=== PATIENT | female | born 1945 | race Caucasian/White ===

== ENCOUNTER → 2017-01-17 | Outpatient (CLI) | payer BC ==
[~2017-01-17] MED LIST: CYMBALTA60 M1 PO; HYDR25T PO; NORVASC10 MG PO; PRILOSEC40 MG PO; ULTRAM100 MG PO
== END | disposition home or self-care (01) ==
LOC: MRI 02:03
DX: Z12.31 Encounter for screening mammogram for malignant neoplasm of breast (principal); M43.17 Spondylolisthesis, lumbosacral region; M47.897 Other spondylosis, lumbosacral region; M48.06 Spinal stenosis, lumbar region

== ENCOUNTER → 2017-04-02 | Outpatient (CLI) | payer OTHER ==
[2017-04-02 07:33] LABS: BASO # 0.1 10*3/uL (0.0-0.1); BASO % 0.8 % (0.0-1.0); EOS # 0.3 10*3/uL (0.0-0.4); EOS % 2.3 % (1.0-4.0); HEMATOCRIT 36.3 % (37.0-47.0); IG # 0.1 10*3/uL (0.0-0.1); LYMPH # 3.5 10*3/uL (1.3-4.4); LYMPH % 31.4 % (27.0-41.0); MEAN CELL VOLUME 77.9 fl (81.0-99.0); MEAN CORPUSCULAR HGB 23.6 pg (27.0-31.0); MEAN CORPUSCULAR HGB CONC 30.3 g/dl (33.0-37.0); MEAN PLATELET VOLUME 8.2 fl (9.6-12.3); MONO # 1.1 10*3/uL (0.1-1.0); MONO % 9.6 % (3.0-9.0); NEUT # 6.2 10*3/uL (2.3-7.9); NEUT % 55.5 % (47.0-73.0); PLATELET COUNT AUTOMATED 577 10*3/uL (130-400); RED BLOOD COUNT 4.66 10*6/uL (4.10-5.10); RED CELL DISTRI WIDTH 17.5 % (0-14.5); WHITE BLOOD COUNT 11.2 10*3/uL (4.8-10.8)
[2017-04-02 08:02] LABS: ALBUMIN 3.2 gm/dl (3.1-4.5); ALKALINE PHOSPHATASE 112 U/L (45-117); BILIRUBIN, TOTAL 0.2 mg/dl (0.2-1.0); BUN 19 mg/dl (7-24); CARBON DIOXIDE 29 mmol/L (21-32); CHLORIDE 103 mmol/L (98-107); CHOLESTEROL 259 mg/dL (<200); EST GLOM FILT AFRICAN AMERICAN > 60 ml/min; GLUCOSE 81 mg/dL (65-99); HDL CHOLESTEROL 71 mg/dl (40-60); LDL CHOLESTEROL 148 mg/dL (9-159); POTASSIUM 2.9 mmol/L (3.5-5.1); SGOT/AST 15 IU/L (3-35); SGPT/ALT 22 U/L (12-78); SODIUM 140 mmol/L (136-145); TOTAL PROTEIN 7.4 gm/dL (6.4-8.2); TRIGLYCERIDES 198 mg/dl (<150); VLDL CHOLESTEROL 40 mg/dL (6-40)
[2017-04-02 08:55] LABS: VITAMIN D, 25-HYDROXY 11.7 ng/mL (30-100)
[2017-04-02 08:56] LABS: FOLIC ACID 9.87 ng/mL (>5.38)
== END | disposition home or self-care (01) ==
LOC: LAB 07:04
PROVIDERS: Internal Medicine
DX: Z13.220 Encounter for screening for lipoid disorders (principal); Z13.1 Encounter for screening for diabetes mellitus; Z13.21 Encounter for screening for nutritional disorder; E78.2 Mixed hyperlipidemia; M54.5 Low back pain; F33.0 Major depressive disorder, recurrent, mild; E55.9 Vitamin D deficiency, unspecified; I10 Essential (primary) hypertension; M17.9 Osteoarthritis of knee, unspecified; R51 Headache

== ENCOUNTER → 2017-04-04 | Outpatient (CLI) | payer OTHER, MEDICARE | END | disposition home or self-care (01) | LOC: LAB 07:00 | DX: E87.6 Hypokalemia (principal) ==

== ENCOUNTER → 2018-02-02 | Day surgery (SDC) | payer OTHER ==
[~2018-02-02] VITALS: Ht 165.1 cm; Wt 78.9 kg
[~2018-02-02] MED LIST changes: +MELOXICAM7.5 MG PO; +REMERON15 M2 PO; +VITAMIN D50000 UNIT PO
--- NOTE | ~2018-02-02 | O ---
[place], [place] OPERATIVE NOTE NAME: DINAH FERGUSON UNIT #: [id number] ROOM: DOCTOR: JYOTHI FITZPATRICK MD BIRTHDATE: [birth year] DOS: 02/02/2018 GASTROENDOSCOPIC REPORT INDICATIONS: This is a 72-year-old patient, who has presented with chief complaint of anemia with H and H of 10 and 33. No evidence of active gastrointestinal bleed. ALLERGIES: CELEXA. FAMILY HISTORY: Father with throat and stomach carcinoma. PAST SURGICAL HISTORY: Left knee. PAST MEDICAL HISTORY: Hypertension, depression, and arthritis. PROCEDURE: Today's procedure part of investigation is panendoscopy and colonoscopy. PREMEDICATION: Versed and propofol. SCOPE: Olympus folding gastroscope Q10 video. REPORT: After putting the patient in left lateral position, application of lubricant to the scope, the scope was introduced. Thereafter, under direct visualization, advanced through the length of esophagus without difficulty, hiatal hernia, which is moderate in size was identified. Gastric pouch was entered. Gastritis seen. Antral biopsy obtained. Duodenal bulb, second and third part within normal limits along the lesser curvature. Air was suctioned out. The patient tolerated the procedure well. IMPRESSION: Gastritis, moderate sized hiatal hernia. PLAN AND DISCUSSION: 1. Continuation with omeprazole therapy. 2. I am going to proceed with colonoscopy today. COLONOSCOPY INDICATIONS: The patient has presented with chief complaint of anemia, undergoing investigation. PROCEDURE: Today's procedure part of investigation is colonoscopy. Premedications were Versed and propofol. SCOPE: Olympus folding colonoscope 10L video. REPORT: After putting the patient in left lateral position and application of lubricant to the scope, the scope was introduced. Thereafter, under direct visualization, advanced through the length of colon with some difficulty. [place], [place] OPERATIVE NOTE NAME: DINAH FERGUSON UNIT #: [id number] ROOM: DOCTOR: JYOTHI FITZPATRICK MD BIRTHDATE: [birth year] Severe sigmoid diverticulosis was noticed. Diverticulosis of severe degree as well as some benign strictures in the sigmoid colon was noticed. Scope, however, after appropriate maneuvers negotiated to cecum. Ileocecal valve, photographed. Scope was gradually withdrawn from ascending, transverse, descending colon, severe diverticulosis, again in sigmoid colon confirmed. Air was suctioned out. The patient was extubated, tolerated the procedure well. IMPRESSION: Diverticulosis, severe degree. PLAN AND DISCUSSION: Further workup of anemia is deferred to you as far as B12, folate, iron levels, and workup as outpatient. As far as the diet, regular to high fiber diet would be beneficial for her. ACTIVITY: Ad arleen. FOLLOWUP: Routinely with you in office, p.r.n. visit with us in GI Clinic. Follow-up colonoscopy in 10 years unless patient has symptoms for which follow-up should be sooner. Thank you very much indeed. Furthermore noticed that the patient is on meloxicam and needs to remain on PPI and contribution from Meloxicam to her anemia also has to be considered. JYOTHI FITZPATRICK MD CM:OPRECORD:OPERATIVE NOTE [id number] JYOTHI FITZPATRICK MD 02/26/18 1734 interface
[2018-02-02 15:00] VITALS: BP 155/87
[2018-02-02 16:26] VITALS: BP 173/88
[2018-02-02 16:41] VITALS: BP 177/86
[2018-02-02 16:57] VITALS: BP 166/78
== END | disposition home or self-care (01) ==
LOC: SDC 01-29 10:15
DX: K29.50 Unspecified chronic gastritis without bleeding (principal); K57.30 Diverticulosis of large intestine without perforation or abscess without bleeding; K44.9 Diaphragmatic hernia without obstruction or gangrene; I10 Essential (primary) hypertension; E78.00 Pure hypercholesterolemia, unspecified; M19.90 Unspecified osteoarthritis, unspecified site; M81.0 Age-related osteoporosis without current pathological fracture; K21.9 Gastro-esophageal reflux disease without esophagitis; F32.9 Major depressive disorder, single episode, unspecified; F41.9 Anxiety disorder, unspecified; Z88.8 Allergy status to other drugs, medicaments and biological substances; Z80.0 Family history of malignant neoplasm of digestive organs; Z98.890 Other specified postprocedural states; Z87.19 Personal history of other diseases of the digestive system; Z79.899 Other long term (current) drug therapy; Z90.49 Acquired absence of other specified parts of digestive tract; Z82.49 Family history of ischemic heart disease and other diseases of the circulatory system

== ENCOUNTER → 2018-03-09 | Outpatient (CLI) | payer OTHER ==
[~2018-03-09] MED LIST changes: +SYMB80 INH
[2018-03-09 12:24] LABS: CREATININE 0.97 mg/dL (0.55-1.02)
== END | disposition home or self-care (01) ==
LOC: LAB 11:02
PROVIDERS: Internal Medicine
DX: R06.02 Shortness of breath (principal)

== ENCOUNTER → 2018-03-12 | Outpatient (CLI) | payer OTHER | END | disposition home or self-care (01) | LOC: CT 03:27 | DX: R91.1 Solitary pulmonary nodule (principal); R06.02 Shortness of breath; R05 Cough; R10.13 Epigastric pain ==

== ENCOUNTER 2018-03-14 12:17 | Inpatient (IN) | payer OTHER ==
[~2018-03-14] VITALS: Ht 165.1 cm; Wt 75.7 kg
--- NOTE | ~2018-03-14 | EKG ---
[place], [place] ELECTROCARDIOGRAM REPORT NAME: DINAH FERGUSON UNIT #: [id number] ROOM: 520 DOCTOR: JING DRAFT REPORT BIRTHDATE: [birth year] [facility] Test Date: 2018-03-14 Test Time: 12:25:06 Pat Name: DINAH FERGUSON Department: Room: Gender: F Customer Service Correspondence Clerk: 10 : 1945 Requested By: SANDRA RAINES Order Number: [id number] Reading MD: Slick Vila MD Measurements Intervals [place] Rate: 108 P: 61 MI: 140 QRS: -17 QRSD: 89 T: 49 QT: 294 QTc: 394 Interpretive Statements Sinus tachycardia Consider left ventricular hypertrophy Electronically Signed On 03-17-2018 9:47:24 PDT by Slick Vila MD CM:EKGRPT:ELECTROCARDIOGRAM REPORT [id number] SANDRA BENJAMIN DRAFT REPORT SANDRA RAINES DO
--- NOTE | ~2018-03-14 | ST ---
[place], [place] EXERCISE STRESS TEST REPORT [id number] UNIT #: [id number] ROOM: 520 DOCTOR: LEENA DILL MD BIRTHDATE: [birth year] DOS: 03/15/2018 TREADMILL TEST WITH NUCLEAR SCAN HISTORY: The patient is a 73-year-old female admitted to [facility] with complaints of chest pains. The patient's cardiac enzymes were negative and she was tested on a Dwain protocol. FINDINGS: The patient exercised for a total of 4 minutes, maximum MET level was 7. Peak blood pressure 178 systolic over 40 diastolic, with a maximum heart rate of 141 beats per minute, which was 95% of the PMHR. The patient complained of some chest pains during the peak phase of exercise, which resolved during the recovery phase. The patient's baseline EKG showed normal sinus rhythm at the heart rate of 105 beats per minute, normal cardiac axis, no significant ST-T abnormality. During the exercise and recovery phase, the patient did not develop any significant EKG abnormality compatible with myocardial ischemia. No significant cardiac dysrhythmias were observed. The patient was injected with Cardiolite during the peak phase of exercise. IMPRESSION: 1. Normal EKG part of the treadmill test at 95% PMHR. 2. Cardiolite results to be reported by Dr. Youngblood, the emc storage architect later today. LEENA DILL MD CM:STRESS:EXERCISE STRESS TEST REPORT [id number] LEENA DILL MD
--- NOTE | ~2018-03-14 | WRIGHTHP ---
[place], [place] PATIENT HISTORY AND PHYSICAL EXAM NAME: DINAH FERGUSON [facility] #: [id number] UNIT #: [id number] ROOM: 520 DOCTOR: LEENA DILL MD BIRTHDATE: [birth year] DOS: 03/14/2018 HISTORY OF PRESENT ILLNESS: The patient is a 73-year-old female with a past medical history of: 1. Iron deficiency anemia. 2. History of postmenopausal osteoporosis. 3. Hiatal hernia. 4. Gastroesophageal reflux disease and esophagitis. 5. Depression. 6. Generalized anxiety disorder. 7. Benign essential hypertension. The patient presented to the Emergency Department with 2 months complaints of off and on retrosternal chest pains going into the jaw and the left arm happening off and on and progressive shortness of breath, fatigue and tiredness. The patient also had some cough and shortness of breath, especially dyspnea on exertion. No dizziness or fainting episode. No other GI or urinary symptoms. REVIEW OF SYSTEMS: RESPIRATORY: Increased shortness of breath and cough. GASTROINTESTINAL: No nausea, vomiting, diarrhea or constipation. CARDIOVASCULAR SYSTEM: Complains of chest pains radiating into the left arm and jaw. FAMILY HISTORY: Noncontributory. SOCIAL HISTORY: . Denies smoking cigarettes, alcohol and drug abuse. ALLERGIES: No known drug allergies. LABORATORY DATA: BUN and creatinine 15 and 1.3, hemoglobin has dropped to 10.1 as compared to 13.5 from 2 years ago. Lactic acid level 3.1, dropped to normal. Recent CT of the chest did not show any acute abnormality, just small pulmonary nodules. IMPRESSION: 1. Chest pains, increased shortness of breath and dyspnea on exertion from uncertain etiology. The patient has been started on bronchodilators, corticosteroids, antibiotic and scheduled for a cardiac stress test in the morning, 2 sets of cardiac enzymes are already negative. 2. Progressive anemia and history of iron deficiency anemia. I have ordered fecal occult blood. 3. Fatigue, probably related to anemia. 4. Gastroesophageal reflux disease and esophagitis with hiatal hernia, treated and asymptomatic with omeprazole. 5. Benign essential hypertension, treated and controlled. The patient on amlodipine and hydrochlorothiazide. 6. Urinary tract infection with 11-15 wbc's per high powered field. I will check urine cultures and also treat with antibiotics. [place], [place] PATIENT HISTORY AND PHYSICAL EXAM NAME: DINAH FERGUSON UNIT #: [id number] ROOM: [facility] DOCTOR: FUENTES MORRIS,LEENA Carrasco BIRTHDATE: [birth year] LEENA DILL MD CM:HISPHYS:PATIENT HISTORY AND PHYSICAL EXAMINATION 12 34 LEENA DILL MD 03/14/182033 interface
--- NOTE | ~2018-03-14 | DS ---
[place], [place] DISCHARGE SUMMARY NAME: DINAH FERGUSON UNIT #: [id number] ROOM: 520 DOCTOR: LEENA DILL MD BIRTHDATE: [birth year] DOS: 03/15/2018 DISCHARGE DIAGNOSES: 1. Chest pains from uncertain etiology with normal cardiac stress test. 2. Progressive anemia, iron deficiency anemia. Fecal occult blood was ordered, but not performed. 3. Postmenopausal osteoporosis. 4. Hiatal hernia, gastroesophageal reflux disease and esophagitis. 5. Chronic depression, recurrent. 6. Generalized anxiety disorder. 7. Benign essential hypertension. 8. Urinary tract infection, treated with antibiotics. HOSPITAL COURSE: The patient presented with recurrent chest pains as mentioned in my H and P. The patient is at high risk for coronary artery disease. She was admitted and cardiac enzymes were performed, which were negative. The patient was finally taken for a cardiac stress test, which was normal and she was discharged to home asymptomatic. 1. Iron deficiency anemia. Hemoccult stools were ordered. Hemoglobin was followed. The patient's hemoglobin has gradually dropped to 8.5 from a level of 13.5 in 2016. This needs to be evaluated as an outpatient. This can also result in some tiredness and fatigue that the patient had been complaining of. The patient was asked to follow up with her PCP, Dr. María Banuelos next week when her blood counts should be repeated. 2. Urinary tract infection, treated with IV Rocephin in the hospital and Bactrim-DS as an outpatient. 3. Benign essential hypertension, treated and controlled. 4. Major depression, recurrent, moderate, treated with mirtazapine. DISCHARGE MEDICATION MANAGEMENT: Hydrochlorothiazide 12.5 mg daily, omeprazole 40 mg a day, amlodipine 10 mg a day, mirtazapine 7.5 mg at bedtime, Meloxicam 7.5 mg b.i.d., and Bactrim DS b.i.d. for 1 week. [place], [place] DISCHARGE SUMMARY NAME: DINAH FERGUSON UNIT #: [id number] ROOM: 520 DOCTOR: LEENA DILL MD BIRTHDATE: [birth year] LEENA DILL MD CM:CRISTOBAL 19 22 LEENA DILL MD 03/15/182020 interface
[~2018-03-14 12:17] MED LIST changes: -SYMB80 INH
[2018-03-14 12:24] VITALS: BP 149/83
[2018-03-14 12:36] LABS: BASO # 0.1 10*3/uL (0.0-0.1); BASO % 1.1 % (0.0-1.0); EOS # 0.4 10*3/uL (0.0-0.4); EOS % 4.1 % (1.0-4.0); HEMATOCRIT 33.6 % (37.0-47.0); HEMOGLOBIN 10.1 g/dl (12.0-16.0); LYMPH # 2.3 10*3/uL (1.3-4.4); LYMPH % 27.4 % (27.0-41.0); MEAN CELL VOLUME 71.2 fl (81.0-99.0); MEAN CORPUSCULAR HGB 21.4 pg (27.0-31.0); MEAN CORPUSCULAR HGB CONC 30.1 g/dl (33.0-37.0); MEAN PLATELET VOLUME 8.2 fl (9.6-12.3); MONO # 0.7 10*3/uL (0.1-1.0); MONO % 8.3 % (3.0-9.0); NEUT % 58.7 % (47.0-73.0); PLATELET COUNT AUTOMATED 562 10*3/uL (130-400); RED BLOOD COUNT 4.72 10*6/uL (4.10-5.10); RED CELL DISTRI WIDTH 20.4 % (0-14.5); WHITE BLOOD COUNT 8.5 10*3/uL (4.8-10.8)
[2018-03-14 12:51] LABS: ACT PARTIAL THROMBO TIME 23.5 SECONDS (20.8-31.5); INTERNATIONAL NORM RATIO 0.9 (2.0-3.5)
[2018-03-14 12:52] VITALS: BP 124/55
[2018-03-14 12:55] LABS: ALBUMIN 3.2 gm/dl (3.1-4.5); ALKALINE PHOSPHATASE 111 U/L (45-117); BUN 15 mg/dl (7-24); CHLORIDE 107 mmol/L (98-107); CREATININE 1.27 mg/dL (0.55-1.02); LIPASE 94 U/L (73-393); POTASSIUM 3.5 mmol/L (3.5-5.1); SGOT/AST 19 IU/L (3-35); SGPT/ALT 20 U/L (12-78); SODIUM 141 mmol/L (136-145); TROPONIN I < 0.015 ng/ml (<0.045)
[2018-03-14 13:24] LABS: BILIRUBIN NEGATIVE (NEGATIVE); BLOOD NEGATIVE (NEGATIVE); CLARITY SL CLOUDY (CLEAR); COLOR YELLOW (YELLOW); GLUCOSE NEGATIVE (NEGATIVE); KETONE NEGATIVE (NEGATIVE); LEUKO ESTERASE 1+ (NEGATIVE); NITRITE NEGATIVE (NEGATIVE); PH 5.5 (5.0-9.0); SPECIFIC GRAVITY 1.025 (1.005-1.030); UROBILINOGEN 0.2 E.U./dl (0.2-1.0)
[2018-03-14 13:35] LABS: BACTERIA 2+; FINE GRANULAR CAST 20-30; HYALINE CAST TNTC
[2018-03-14 13:41] VITALS: BP 110/77
[2018-03-14 14:20] VITALS: BP 96/68
[2018-03-14 16:00] VITALS: BP 121/71
[2018-03-14 20:00] VITALS: BP 160/80
[2018-03-15] VITALS: BP 141/98
[2018-03-15 07:22] LABS: HEMATOCRIT 28.5 % (37.0-47.0); HEMOGLOBIN 8.5 g/dl (12.0-16.0); MEAN CELL VOLUME 71.3 fl (81.0-99.0); MEAN CORPUSCULAR HGB 21.3 pg (27.0-31.0); MEAN CORPUSCULAR HGB CONC 29.8 g/dl (33.0-37.0); MEAN PLATELET VOLUME 8.9 fl (9.6-12.3); PLATELET COUNT AUTOMATED 513 10*3/uL (130-400); WHITE BLOOD COUNT 11.7 10*3/uL (4.8-10.8)
[2018-03-15 07:34] LABS: CREATININE 1.24 mg/dL (0.55-1.02); POTASSIUM 3.4 mmol/L (3.5-5.1)
[2018-03-15 07:48] LABS: MICROCYTOSIS SLIGHT; OVALOCYTES MODERATE; PLATELET SUFFICIENCY HIGH (NORMAL); TOTAL CELLS COUNTED 100 #CELLS
[2018-03-15 08:00] VITALS: BP 162/70
[2018-03-15 12:00] VITALS: BP 155/62
[2018-04-30] MEDS ORDERED: SYMB80 INH (10:35)
== END 2018-03-15 14:41 | disposition home or self-care (01) | DRG 690 ==
LOC: ED 12:17 → 5E 13:33 → EDHOLD 13:33 → 5E 13:39
PROVIDERS: Emergency Medicine; Internal Medicine
PROC: 4A02XM4 Measurement of Cardiac Total Activity, External Approach (ICD-10-PCS; principal; 2018-03-15)
DX: N39.0 Urinary tract infection, site not specified (principal); F33.1 Major depressive disorder, recurrent, moderate; D50.9 Iron deficiency anemia, unspecified; I10 Essential (primary) hypertension; R07.9 Chest pain, unspecified; K21.0 Gastro-esophageal reflux disease with esophagitis; F41.1 Generalized anxiety disorder; M81.0 Age-related osteoporosis without current pathological fracture; K44.9 Diaphragmatic hernia without obstruction or gangrene; Z96.651 Presence of right artificial knee joint; Z82.49 Family history of ischemic heart disease and other diseases of the circulatory system; Z79.899 Other long term (current) drug therapy; Z90.49 Acquired absence of other specified parts of digestive tract; Z84.89 Family history of other specified conditions

== ENCOUNTER → 2018-03-26 | Outpatient (CLI) | payer OTHER ==
[~2018-03-26] MED LIST changes: +SYMB80 INH
--- NOTE | ~2018-03-26 | PF ---
[place], [place] PULMONARY FUNCTION TEST NAME: DINAH FERGUSON [facility] #: [id number] UNIT #: [id number] ROOM: DOCTOR: CELY LOPEZ MD,JAZZMINE BIRTHDATE: [birth year] DOS: 03/26/2018 PULMONARY FUNCTION TEST HISTORY: The patient is recorded as a 73-year-old female, height of 65 inches, weight of 169 pounds, BMI 28.1, presented for complete pulmonary function testing with symptoms of nonproductive cough and shortness of breath. There were no past tobacco use reported. SPIROMETRY: The FVC was recorded 1.97 liters as 67% predicted value. The FEV1 of 1.49 liters, 66% predicted value were noted [id number] decreased. The ratio of FEV1/FVC recorded as 78%. Post-bronchodilator, no significant improvement noted in FEV1 or FVC. Flow volume loop was suggestive of obstructive airway pattern. LUNG VOLUMES: Thoracic gas volume recorded as 92%, residual volume 150%, total lung capacity of 89%. RV/TLC ratio of 127%. Lung volume shows mild air trapping. The patient's lung diffusion noted mildly decreased at 52% without correction of carbon monoxide hemoglobin values. The patient's airway resistance and passive conductance were noted normal, but partial improvement occurred postbronchodilator test. FINAL IMPRESSION: 1. Possibility of mild obstructive lung disease cannot be completely excluded with current pulmonary function test. 2. Nonspecific reduction of FEV1/FVC was also recorded for this patient as well, of no clinical significance. 3. Moderate reduction of the lung diffusion. Please correlate with the patient's clinical history and radiology data. JAZZMINE TA MD CM:PFREPORT:PULMONARY FUNCTION TEST 1228 1720 JAZZMINE LOPEZ MD
== END | disposition home or self-care (01) ==
LOC: CP 14:26
DX: R06.02 Shortness of breath (principal)

== ENCOUNTER → 2018-03-27 | Outpatient (CLI) | payer OTHER | END | disposition home or self-care (01) | LOC: LAB 09:19 | DX: R19.31 Right upper quadrant abdominal rigidity (principal) ==

== ENCOUNTER → 2018-03-28 | Outpatient (CLI) | payer OTHER | END | disposition home or self-care (01) | LOC: LAB 14:05 | DX: R19.30 Abdominal rigidity, unspecified site (principal) ==

== ENCOUNTER → 2018-03-29 | Outpatient (CLI) | payer OTHER | END | disposition home or self-care (01) | LOC: LAB 01:25 | DX: R19.30 Abdominal rigidity, unspecified site (principal) ==

== ENCOUNTER → 2019-08-19 | Outpatient (CLI) | payer OTHER ==
[2019-08-19 10:52] LABS: BASO # 0.1 10*3/uL (0.0-0.1); BASO % 1.1 % (0.0-1.0); EOS # 0.3 10*3/uL (0.0-0.4); EOS % 3.4 % (1.0-4.0); HEMATOCRIT 43.9 % (37.0-47.0); HEMOGLOBIN 13.7 g/dl (12.0-16.0); LYMPH % 21.7 % (27.0-41.0); MEAN CELL VOLUME 85.2 fl (81.0-99.0); MEAN CORPUSCULAR HGB 26.6 pg (27.0-31.0); MEAN CORPUSCULAR HGB CONC 31.2 g/dl (33.0-37.0); MEAN PLATELET VOLUME 8.8 fl (9.6-12.3); MONO # 0.7 10*3/uL (0.1-1.0); MONO % 7.5 % (3.0-9.0); NEUT # 6.2 10*3/uL (2.3-7.9); NEUT % 65.9 % (47.0-73.0); PLATELET COUNT AUTOMATED 501 10*3/uL (130-400); RED BLOOD COUNT 5.15 10*6/uL (4.10-5.10); RED CELL DISTRI WIDTH 16.2 % (0-14.5); WHITE BLOOD COUNT 9.4 10*3/uL (4.8-10.8)
[2019-08-19 11:30] LABS: CHLORIDE 107 mmol/L (98-107); POTASSIUM 3.9 mmol/L (3.5-5.1); SODIUM 140 mmol/L (136-145)
[2019-08-19 11:41] LABS: ALBUMIN 3.5 gm/dl (3.1-4.5); ALKALINE PHOSPHATASE 115 U/L (45-117); BUN 15 mg/dl (7-24); CHOLESTEROL 300 mg/dL (<200); CREATININE 0.93 mg/dL (0.55-1.02); FREE T4 0.98 ng/dl (0.76-1.46); HDL CHOLESTEROL 60 mg/dl (40-60); LDL CHOLESTEROL 197 mg/dL (9-159); SGOT/AST 21 IU/L (3-35); SGPT/ALT 25 U/L (12-78); TOTAL PROTEIN 8.1 gm/dL (6.4-8.2); TRIGLYCERIDES 214 mg/dl (<150); VLDL CHOLESTEROL 43 mg/dL (6-40)
[2019-08-19 12:26] LABS: VITAMIN D, 25-HYDROXY 19.5 ng/mL (30-100)
== END | disposition home or self-care (01) ==
LOC: LAB 00:31 → RAD 10:30 → MAMMO 11:00
PROVIDERS: Internal Medicine
DX: M81.0 Age-related osteoporosis without current pathological fracture (principal); I10 Essential (primary) hypertension; E55.9 Vitamin D deficiency, unspecified; E78.9 Disorder of lipoprotein metabolism, unspecified

== ENCOUNTER → 2019-08-20 | Outpatient (CLI) | payer OTHER | END | disposition home or self-care (01) | LOC: MAMMO 13:09 | DX: Z12.31 Encounter for screening mammogram for malignant neoplasm of breast (principal) ==

== ENCOUNTER → 2020-02-19 | Outpatient (CLI) | payer OTHER | END | disposition home or self-care (01) | LOC: CARD 00:07 | DX: I65.23 Occlusion and stenosis of bilateral carotid arteries (principal); M19.042 Primary osteoarthritis, left hand; M19.041 Primary osteoarthritis, right hand; I05.8 Other rheumatic mitral valve diseases ==

== ENCOUNTER → 2020-12-16 | Outpatient (CLI) | payer OTHER ==
[2020-12-16 09:34] LABS: BASO # 0.1 10*3/uL (0.0-0.1); BASO % 1.1 % (0.0-1.0); EOS # 0.5 10*3/uL (0.0-0.4); EOS % 5.3 % (1.0-4.0); HEMATOCRIT 37.8 % (37.0-47.0); LYMPH # 2.9 10*3/uL (1.3-4.4); MEAN CELL VOLUME 76.2 fl (81.0-99.0); MEAN CORPUSCULAR HGB 22.8 pg (27.0-31.0); MEAN CORPUSCULAR HGB CONC 29.9 g/dl (33.0-37.0); MEAN PLATELET VOLUME 8.8 fl (9.6-12.3); MONO # 0.7 10*3/uL (0.1-1.0); MONO % 7.8 % (3.0-9.0); NEUT # 4.7 10*3/uL (2.3-7.9); NEUT % 52.5 % (47.0-73.0); PLATELET COUNT AUTOMATED 570 10*3/uL (130-400); RED BLOOD COUNT 4.96 10*6/uL (4.10-5.10); RED CELL DISTRI WIDTH 19.3 % (0-14.5); WHITE BLOOD COUNT 8.9 10*3/uL (4.8-10.8)
[2020-12-16 10:05] LABS: ALBUMIN 3.6 gm/dl (3.1-4.5); CREATININE 1.1 mg/dL (0.55-1.02); FREE T4 1.1 ng/dl (0.76-1.46); POTASSIUM 3.1 mmol/L (3.5-5.1); TOTAL PROTEIN 7.8 gm/dL (6.4-8.2)
[2020-12-16 10:11] LABS: THYROID STIM HORMONE (HS) 3.31 uIU/ml (0.358-4.75)
[2020-12-16 10:42] LABS: VITAMIN D, 25-HYDROXY 15.4 ng/mL (30-100)
== END | disposition home or self-care (01) ==
LOC: LAB 08:33
PROVIDERS: ATTEND Internal Medicine
DX: Z00.01 Encounter for general adult medical examination with abnormal findings (principal); I10 Essential (primary) hypertension; E78.2 Mixed hyperlipidemia; E55.9 Vitamin D deficiency, unspecified

== ENCOUNTER → 2020-12-22 | Outpatient (CLI) | payer OTHER | END | disposition home or self-care (01) | LOC: LAB 09:46 | PROVIDERS: ATTEND Internal Medicine | DX: D58.2 Other hemoglobinopathies (principal); D64.9 Anemia, unspecified ==

== ENCOUNTER 2021-01-12 10:10 | Inpatient (IN) | payer OTHER ==
[~2021-01-12] VITALS: Ht 160 cm; Wt 79.8 kg
[~2021-01-12 10:10] MED LIST changes: +ULTRAM50 MG PO
[2021-01-12 10:30] VITALS: BP 118/85
[2021-01-12 12:00] VITALS: BP 105/65
[2021-01-12 13:09] LABS: BASO # 0.1 10*3/uL (0.0-0.1); BASO % 0.9 % (0.0-1.0); EOS # 0.1 10*3/uL (0.0-0.4); EOS % 1.3 % (1.0-4.0); HEMATOCRIT 36.2 % (37.0-47.0); LYMPH # 2.1 10*3/uL (1.3-4.4); LYMPH % 21.2 % (27.0-41.0); MEAN CELL VOLUME 74.3 fl (81.0-99.0); MEAN CORPUSCULAR HGB 22.4 pg (27.0-31.0); MEAN CORPUSCULAR HGB CONC 30.1 g/dl (33.0-37.0); MEAN PLATELET VOLUME 8.2 fl (9.6-12.3); MONO # 0.6 10*3/uL (0.1-1.0); NEUT % 70.3 % (47.0-73.0); PLATELET COUNT AUTOMATED 581 10*3/uL (130-400); RED BLOOD COUNT 4.87 10*6/uL (4.10-5.10); RED CELL DISTRI WIDTH 18.5 % (0-14.5); WHITE BLOOD COUNT 9.9 10*3/uL (4.8-10.8)
[2021-01-12 13:28] LABS: ALBUMIN 3.6 gm/dl (3.1-4.5); CREATININE 1.37 mg/dL (0.55-1.02); POTASSIUM 3.2 mmol/L (3.5-5.1); TOTAL PROTEIN 7.4 gm/dL (6.4-8.2)
[2021-01-12 13:34] LABS: THYROID STIM HORMONE (HS) 0.74 uIU/ml (0.358-4.75)
[2021-01-12 16:00] VITALS: BP 113/64
[2021-01-12 20:00] VITALS: BP 113/50
[2021-01-13] VITALS (8 sets, daily range): BP systolic 107–133; BP diastolic 45–69
[2021-01-13 08:22] LABS: BASO # 0.1 10*3/uL (0.0-0.1); BASO % 1.3 % (0.0-1.0); EOS # 0.5 10*3/uL (0.0-0.4); EOS % 5.5 % (1.0-4.0); HEMATOCRIT 31.9 % (37.0-47.0); LYMPH # 2.7 10*3/uL (1.3-4.4); MEAN CELL VOLUME 76.1 fl (81.0-99.0); MEAN CORPUSCULAR HGB 22.9 pg (27.0-31.0); MEAN CORPUSCULAR HGB CONC 30.1 g/dl (33.0-37.0); MEAN PLATELET VOLUME 8.4 fl (9.6-12.3); MONO # 0.9 10*3/uL (0.1-1.0); MONO % 10.6 % (3.0-9.0); NEUT # 4.5 10*3/uL (2.3-7.9); NEUT % 51.1 % (47.0-73.0); PLATELET COUNT AUTOMATED 501 10*3/uL (130-400); RED BLOOD COUNT 4.19 10*6/uL (4.10-5.10); RED CELL DISTRI WIDTH 18.6 % (0-14.5); WHITE BLOOD COUNT 8.7 10*3/uL (4.8-10.8)
[2021-01-13 08:37] LABS: BUN 18 mg/dl (7-24); CHLORIDE 106 mmol/L (98-107); CREATININE 1.06 mg/dL (0.55-1.02); POTASSIUM 3.7 mmol/L (3.5-5.1); SODIUM 137 mmol/L (136-145)
[2021-01-13] MEDS ORDERED: XARE20MG PO (08:47)
[2021-01-13] MEDS ORDERED: LOPRESSOR25 MG PO (08:47)
[2021-01-14] VITALS: BP 133/59
[2021-01-14 06:29] LABS: BASO # 0.1 10*3/uL (0.0-0.1); BASO % 1.5 % (0.0-1.0); EOS # 0.4 10*3/uL (0.0-0.4); EOS % 5.3 % (1.0-4.0); HEMATOCRIT 33.3 % (37.0-47.0); LYMPH # 2.2 10*3/uL (1.3-4.4); LYMPH % 27.7 % (27.0-41.0); MEAN CELL VOLUME 76.6 fl (81.0-99.0); MEAN CORPUSCULAR HGB 22.8 pg (27.0-31.0); MEAN CORPUSCULAR HGB CONC 29.7 g/dl (33.0-37.0); MEAN PLATELET VOLUME 8.7 fl (9.6-12.3); MONO # 0.8 10*3/uL (0.1-1.0); MONO % 10.4 % (3.0-9.0); NEUT # 4.4 10*3/uL (2.3-7.9); NEUT % 54.7 % (47.0-73.0); PLATELET COUNT AUTOMATED 517 10*3/uL (130-400); RED BLOOD COUNT 4.35 10*6/uL (4.10-5.10); RED CELL DISTRI WIDTH 18.6 % (0-14.5)
[2021-01-14 06:48] LABS: BUN 16 mg/dl (7-24); CHLORIDE 110 mmol/L (98-107); CREATININE 1.01 mg/dL (0.55-1.02); POTASSIUM 3.8 mmol/L (3.5-5.1); SODIUM 141 mmol/L (136-145)
[2021-01-14 08:00] VITALS: BP 163/60
[2021-01-14 12:00] VITALS: BP 113/60
[2021-01-14 20:00] VITALS: BP 136/62
[2021-01-15] VITALS: BP 133/60
[2021-01-15] MEDS ORDERED: Carafate1 GM PO (06:15)
[2021-01-15] MEDS ORDERED: FERROUS SULFAT325 MG PO (06:19)
[2021-01-15] MEDS ORDERED: XARE15TA PO (06:28)
[2021-01-15] MEDS ORDERED: LOPRESSOR25 MG PO (06:32)
[2021-01-15 08:00] VITALS: BP 141/64; BP 142/80
== END 2021-01-15 10:31 | disposition home or self-care (01) | DRG 308 ==
LOC: 4E 10:10
PROVIDERS: Internal Medicine; ADMIT Internal Medicine; ATTEND Internal Medicine
PROC: 0DB68ZX Excision of Stomach, Via Natural or Artificial Opening Endoscopic, Diagnostic (ICD-10-PCS; principal; 2021-01-13)
PROC: 0DJD8ZZ Inspection of Lower Intestinal Tract, Via Natural or Artificial Opening Endoscopic (ICD-10-PCS; 2021-01-13)
DX: I48.91 Unspecified atrial fibrillation (principal); K29.71 Gastritis, unspecified, with bleeding; K25.4 Chronic or unspecified gastric ulcer with hemorrhage; N17.9 Acute kidney failure, unspecified; E87.1 Hypo-osmolality and hyponatremia; D50.9 Iron deficiency anemia, unspecified; Z88.8 Allergy status to other drugs, medicaments and biological substances; Z79.899 Other long term (current) drug therapy; I10 Essential (primary) hypertension; E78.5 Hyperlipidemia, unspecified; E87.6 Hypokalemia; M19.90 Unspecified osteoarthritis, unspecified site; K44.9 Diaphragmatic hernia without obstruction or gangrene

== ENCOUNTER → 2021-02-04 | Outpatient (CLI) | payer OTHER ==
[~2021-02-04] MED LIST changes: +Carafate1 GM PO; +FERROUS SULFAT325 MG PO; +LOPRESSOR25 MG PO; +XARE15TA PO; +XARE20MG PO
== END | disposition home or self-care (01) ==
LOC: MAMMO 00:49
PROVIDERS: ATTEND Internal Medicine
DX: Z12.31 Encounter for screening mammogram for malignant neoplasm of breast (principal)

== ENCOUNTER → 2021-02-09 | Outpatient (CLI) | payer OTHER | END | disposition home or self-care (01) | LOC: RAD 00:48 | PROVIDERS: ATTEND Internal Medicine | DX: Z13.820 Encounter for screening for osteoporosis (principal); Z78.0 Asymptomatic menopausal state ==

== ENCOUNTER → 2021-03-02 | Outpatient (CLI) | payer OTHER ==
[2021-03-02 09:52] LABS: BASO # 0.1 10*3/uL (0.0-0.1); BASO % 0.7 % (0.0-1.0); EOS # 0.3 10*3/uL (0.0-0.4); EOS % 2.9 % (1.0-4.0); HEMATOCRIT 40.7 % (37.0-47.0); LYMPH # 2.5 10*3/uL (1.3-4.4); LYMPH % 26.2 % (27.0-41.0); MEAN CELL VOLUME 81.7 fl (81.0-99.0); MEAN CORPUSCULAR HGB 25.1 pg (27.0-31.0); MEAN CORPUSCULAR HGB CONC 30.7 g/dl (33.0-37.0); MEAN PLATELET VOLUME 8.6 fl (9.6-12.3); MONO # 0.9 10*3/uL (0.1-1.0); MONO % 9.3 % (3.0-9.0); NEUT # 5.7 10*3/uL (2.3-7.9); NEUT % 60.5 % (47.0-73.0); PLATELET COUNT AUTOMATED 464 10*3/uL (130-400); RED BLOOD COUNT 4.98 10*6/uL (4.10-5.10); RED CELL DISTRI WIDTH 23.2 % (0-14.5); WHITE BLOOD COUNT 9.5 10*3/uL (4.8-10.8)
== END | disposition home or self-care (01) ==
LOC: LAB 09:33
PROVIDERS: ATTEND Internal Medicine
DX: I10 Essential (primary) hypertension (principal); I48.91 Unspecified atrial fibrillation; D50.8 Other iron deficiency anemias; M17.0 Bilateral primary osteoarthritis of knee; F33.0 Major depressive disorder, recurrent, mild; F41.1 Generalized anxiety disorder

== ENCOUNTER → 2021-05-04 | Outpatient (CLI) | payer OTHER ==
[2021-05-04 10:04] LABS: BASO # 0.1 10*3/uL (0.0-0.1); BASO % 1.3 % (0.0-1.0); EOS # 0.2 10*3/uL (0.0-0.4); EOS % 2.9 % (1.0-4.0); LYMPH # 2.2 10*3/uL (1.3-4.4); MEAN CELL VOLUME 85.2 fl (81.0-99.0); MEAN CORPUSCULAR HGB 26.9 pg (27.0-31.0); MEAN CORPUSCULAR HGB CONC 31.6 g/dl (33.0-37.0); MEAN PLATELET VOLUME 8.6 fl (9.6-12.3); MONO # 0.7 10*3/uL (0.1-1.0); MONO % 8.7 % (3.0-9.0); NEUT # 5.1 10*3/uL (2.3-7.9); NEUT % 60.9 % (47.0-73.0); PLATELET COUNT AUTOMATED 438 10*3/uL (130-400); RED BLOOD COUNT 5.28 10*6/uL (4.10-5.10); RED CELL DISTRI WIDTH 17.2 % (0-14.5); WHITE BLOOD COUNT 8.4 10*3/uL (4.8-10.8)
== END | disposition home or self-care (01) ==
LOC: LAB 09:45
PROVIDERS: ATTEND Nurse Practitioner Family
DX: K92.2 Gastrointestinal hemorrhage, unspecified (principal)

== ENCOUNTER → 2021-08-24 | Outpatient (CLI) | payer OTHER | END | disposition home or self-care (01) | LOC: COVID19 15:31 | PROVIDERS: ATTEND Hospitalist | DX: Z20.822 Contact with and (suspected) exposure to COVID-19 (principal) ==

== ENCOUNTER → 2021-10-20 | Outpatient (CLI) | payer OTHER ==
[2021-10-20 11:12] LABS: BASO # 0.1 10*3/uL (0.0-0.1); BASO % 0.9 % (0.0-1.0); EOS # 0.2 10*3/uL (0.0-0.4); EOS % 2.1 % (1.0-4.0); HEMATOCRIT 44.9 % (37.0-47.0); LYMPH # 1.8 10*3/uL (1.3-4.4); LYMPH % 17.7 % (27.0-41.0); MEAN CORPUSCULAR HGB 27.9 pg (27.0-31.0); MEAN CORPUSCULAR HGB CONC 32.1 g/dl (33.0-37.0); MEAN PLATELET VOLUME 8.6 fl (9.6-12.3); MONO # 0.7 10*3/uL (0.1-1.0); MONO % 7.3 % (3.0-9.0); NEUT # 7.3 10*3/uL (2.3-7.9); NEUT % 71.6 % (47.0-73.0); PLATELET COUNT AUTOMATED 410 10*3/uL (130-400); RED BLOOD COUNT 5.16 10*6/uL (4.10-5.10); RED CELL DISTRI WIDTH 14.7 % (0-14.5); WHITE BLOOD COUNT 10.2 10*3/uL (4.8-10.8)
[2021-10-20 11:44] LABS: ALBUMIN 3.4 gm/dl (3.1-4.5); CREATININE 1.24 mg/dL (0.55-1.02); POTASSIUM 4.4 mmol/L (3.5-5.1); TOTAL PROTEIN 7.5 gm/dL (6.4-8.2)
[2021-10-20 11:50] LABS: FREE T4 0.99 ng/dl (0.76-1.46); THYROID STIM HORMONE (HS) 2.09 uIU/ml (0.358-4.75)
[2021-10-20 12:02] LABS: VITAMIN D, 25-HYDROXY 24.3 ng/mL (30-100)
== END | disposition home or self-care (01) ==
LOC: LAB 10:52
PROVIDERS: ATTEND Internal Medicine
DX: I10 Essential (primary) hypertension (principal); E78.2 Mixed hyperlipidemia; E55.9 Vitamin D deficiency, unspecified

== ENCOUNTER → 2021-11-01 | Outpatient (CLI) | payer OTHER | END | disposition home or self-care (01) | LOC: US 00:45 | PROVIDERS: ATTEND Internal Medicine | DX: N28.1 Cyst of kidney, acquired (principal); R94.4 Abnormal results of kidney function studies ==

== ENCOUNTER → 2022-10-25 | Outpatient (CLI) | payer OTHER | END | disposition home or self-care (01) | LOC: CARD 01:20 | PROVIDERS: ATTEND Internal Medicine | DX: I49.3 Ventricular premature depolarization (principal); I49.1 Atrial premature depolarization; I47.1 Supraventricular tachycardia ==

== ENCOUNTER → 2022-11-21 | Outpatient (CLI) | payer OTHER | END | disposition home or self-care (01) | LOC: US 00:38 | PROVIDERS: ATTEND Internal Medicine | DX: I65.23 Occlusion and stenosis of bilateral carotid arteries (principal); R42 Dizziness and giddiness ==

== ENCOUNTER → 2023-06-28 | Outpatient (CLI) | payer OTHER | END | disposition home or self-care (01) | LOC: RESCLI 01:33 | PROVIDERS: ATTEND Internal Medicine | DX: I48.91 Unspecified atrial fibrillation (principal); E78.5 Hyperlipidemia, unspecified; M19.90 Unspecified osteoarthritis, unspecified site; K21.9 Gastro-esophageal reflux disease without esophagitis; J44.9 Chronic obstructive pulmonary disease, unspecified; E55.9 Vitamin D deficiency, unspecified; Z98.890 Other specified postprocedural states; Z82.3 Family history of stroke; Z82.49 Family history of ischemic heart disease and other diseases of the circulatory system; Z88.8 Allergy status to other drugs, medicaments and biological substances; Z79.899 Other long term (current) drug therapy ==

== ENCOUNTER → 2023-10-17 | Outpatient (CLI) | payer OTHER ==
[~2023-10-17] MED LIST changes: +ALDACTONE25 MG PO; +BUMETANIDE1 MG PO; +FEROSUL325 MG PO; +LOSARTAN POTASS25 M1 PO; +METOPROLOL SUCC50 M1 PO; +PACERONE200 MG PO
== END | disposition home or self-care (01) ==
LOC: CARD 00:48
PROVIDERS: ATTEND Internal Medicine Cardiovascular Disease
DX: I35.8 Other nonrheumatic aortic valve disorders (principal); I42.9 Cardiomyopathy, unspecified

== ENCOUNTER 2024-02-03 08:05 | Emergency (ER) | payer MEDICARE ==
[~2024-02-03] VITALS: Ht 157.4 cm; Wt 79.4 kg
[2024-02-03] MEDS ORDERED: TRAMADOL HCL50 MG PO (08:27)
[2024-02-03] MEDS ORDERED: SERTRALINE HYDR50 MG PO (08:28)
[2024-02-03] MEDS ORDERED: LABETALOL HCL IV ONE (08:30)
[2024-02-03] MEDS ORDERED: BUMETANIDE1 MG PO (08:32)
[2024-02-03] MEDS ORDERED: XARE20MG PO (08:33)
[2024-02-03] MEDS ORDERED: LIPITOR40 MG PO (08:34)
[2024-02-03] MEDS ORDERED: Oxymetazoline Hydrochloride Nasal 15 ml bottle NAS ONE (08:35)
[2024-02-03] MEDS ORDERED: Lopressor25 MG PO (08:42)
[2024-02-03 08:53] LABS: BASO # 0.1 10*3/uL (0.0-0.1); BASO % 1.1 % (0.0-1.0); EOS # 0.2 10*3/uL (0.0-0.4); EOS % 3.3 % (1.0-4.0); HEMATOCRIT 35.9 % (37.0-47.0); LYMPH # 1.5 10*3/uL (1.3-4.4); LYMPH % 23.4 % (27.0-41.0); MEAN CORPUSCULAR HGB 30.8 pg (27.0-31.0); MEAN CORPUSCULAR HGB CONC 31.8 g/dl (33.0-37.0); MEAN PLATELET VOLUME 8.6 fl (9.6-12.3); MONO # 0.6 10*3/uL (0.1-1.0); MONO % 9.2 % (3.0-9.0); NEUT # 3.9 10*3/uL (2.3-7.9); NEUT % 62.4 % (47.0-73.0); PLATELET COUNT AUTOMATED 352 10*3/uL (130-400); RED CELL DISTRI WIDTH 14.4 % (0-14.5); WHITE BLOOD COUNT 6.3 10*3/uL (4.8-10.8)
[2024-02-03] MEDS ORDERED: METOPROLOL SUCC25 M2 PO (09:06)
[2024-02-03 09:12] LABS: ACT PARTIAL THROMBO TIME 33.6 SECONDS (20.0-32.1)
[2024-02-03 09:14] LABS: POTASSIUM 4.5 mmol/L (3.4-5.1); TOTAL PROTEIN 6.5 gm/dL (6.0-8.0)
[2024-02-03] MEDS ORDERED: SEPTDS PO (09:23)
== END 2024-02-03 09:55 | disposition home or self-care (01) ==
LOC: ED 08:05
PROVIDERS: Emergency Medicine
DX: R04.0 Epistaxis (principal); I16.0 Hypertensive urgency; F41.9 Anxiety disorder, unspecified; F32.A Depression, unspecified; K21.9 Gastro-esophageal reflux disease without esophagitis; E78.00 Pure hypercholesterolemia, unspecified; J44.9 Chronic obstructive pulmonary disease, unspecified; Z88.8 Allergy status to other drugs, medicaments and biological substances; Z90.49 Acquired absence of other specified parts of digestive tract; Z90.89 Acquired absence of other organs; Z90.11 Acquired absence of right breast and nipple

== ENCOUNTER 2024-02-05 11:37 | Emergency (ER) | payer MEDICARE ==
[~2024-02-05] VITALS: Ht 157.4 cm; Wt 79.4 kg
[~2024-02-05 11:37] MED LIST changes: +LIPITOR40 MG PO; +Lopressor25 MG PO; +METOPROLOL SUCC25 M2 PO; +SEPTDS PO; +SERTRALINE HYDR50 MG PO; +TRAMADOL HCL50 MG PO
[2024-02-05] MEDS ORDERED: AFRIN15 ML NAS (12:06)
== END 2024-02-05 12:22 | disposition home or self-care (01) ==
LOC: ED 11:37
DX: R04.0 Epistaxis (principal); I10 Essential (primary) hypertension; F41.9 Anxiety disorder, unspecified; F32.A Depression, unspecified; K21.9 Gastro-esophageal reflux disease without esophagitis; E78.00 Pure hypercholesterolemia, unspecified; J44.9 Chronic obstructive pulmonary disease, unspecified; Z88.8 Allergy status to other drugs, medicaments and biological substances; Z90.49 Acquired absence of other specified parts of digestive tract; Z90.89 Acquired absence of other organs; Z98.890 Other specified postprocedural states; Z90.11 Acquired absence of right breast and nipple; Z96.651 Presence of right artificial knee joint

== ENCOUNTER 2024-03-22 15:04 | Emergency (ER) | payer MEDICARE ==
[~2024-03-22] VITALS: Ht 157.4 cm; Wt 79.4 kg
[~2024-03-22 15:04] MED LIST changes: +AFRIN15 ML NAS
[2024-03-22] MEDS ORDERED: Ondansetron Hydrochloride 4 MG/2 ML VIAL IV ONE (15:25)
[2024-03-22 15:39] LABS: MEAN CELL VOLUME 95.7 fl (81.0-99.0); MEAN CORPUSCULAR HGB 30.2 pg (27.0-31.0); MEAN CORPUSCULAR HGB CONC 31.6 g/dl (33.0-37.0); MEAN PLATELET VOLUME 8.8 fl (9.6-12.3); PLATELET COUNT AUTOMATED 322 10*3/uL (130-400); RED CELL DISTRI WIDTH 13.9 % (0-14.5); WHITE BLOOD COUNT 5.6 10*3/uL (4.8-10.8)
[2024-03-22] MEDS ORDERED: Metoprolol Tartrate 5 MG/5 ML VIAL IV ONE (15:40)
[2024-03-22] MEDS ORDERED: Diltiazem Hydrochloride 25 MG/5 ML VIAL IV ONE (15:40)
[2024-03-22 15:49] LABS: MANUAL DIFF REFLEX YES
[2024-03-22 15:58] LABS: POTASSIUM 3.3 mmol/L (3.4-5.1)
[2024-03-22 16:16] LABS: BASOPHILS 1 % (0-1); BURR CELLS FEW; PLATELET SUFFICIENCY NORMAL (NORMAL); TOTAL CELLS COUNTED 100 #CELLS
[2024-03-22] MEDS ORDERED: FUROSEMIDE 40 MG/4 ML VIAL IV ONE (16:20)
[2024-03-22] MEDS ORDERED: POTASSIUM CHLORIDE 20 MEQ TAB PO ONE (16:30)
== END 2024-03-22 16:48 | disposition home or self-care (01) ==
LOC: ED 15:04
PROVIDERS: Emergency Medicine
DX: I50.9 Heart failure, unspecified (principal); I48.20 Chronic atrial fibrillation, unspecified; E87.6 Hypokalemia; I11.0 Hypertensive heart disease with heart failure; E78.5 Hyperlipidemia, unspecified; F41.9 Anxiety disorder, unspecified; F32.A Depression, unspecified; K21.9 Gastro-esophageal reflux disease without esophagitis; E78.00 Pure hypercholesterolemia, unspecified; J44.9 Chronic obstructive pulmonary disease, unspecified; Z88.8 Allergy status to other drugs, medicaments and biological substances; Z90.49 Acquired absence of other specified parts of digestive tract; Z90.89 Acquired absence of other organs; Z98.890 Other specified postprocedural states; Z90.11 Acquired absence of right breast and nipple

== ENCOUNTER 2024-05-11 04:57 | Emergency (ER) | payer MEDICARE ==
[~2024-05-11] VITALS: Ht 157.4 cm; Wt 79.4 kg
[2024-05-11 06:12] LABS: BASO # 0.1 10*3/uL (0.0-0.1); EOS # 0.2 10*3/uL (0.0-0.4); EOS % 2.1 % (1.0-4.0); HEMATOCRIT 40.6 % (37.0-47.0); LYMPH # 1.5 10*3/uL (1.3-4.4); LYMPH % 16.8 % (27.0-41.0); MEAN CELL VOLUME 94.6 fl (81.0-99.0); MEAN CORPUSCULAR HGB 29.4 pg (27.0-31.0); MEAN PLATELET VOLUME 8.8 fl (9.6-12.3); MONO # 0.8 10*3/uL (0.1-1.0); MONO % 9.2 % (3.0-9.0); NEUT # 6.3 10*3/uL (2.3-7.9); NEUT % 70.6 % (47.0-73.0); PLATELET COUNT AUTOMATED 366 10*3/uL (130-400); RED BLOOD COUNT 4.29 10*6/uL (4.10-5.10)
[2024-05-11] MEDS ORDERED: hydrALAZINE hydrochloride 20 MG/ML VIAL IV ONE (06:25)
[2024-05-11 06:30] LABS: ACT PARTIAL THROMBO TIME 34.6 SECONDS (20.0-32.1)
[2024-05-11 06:40] LABS: ALKALINE PHOSPHATASE 95 U/L (46-116); BUN 18 mg/dl (9-23); CHLORIDE 108 mmol/L (98-107); POTASSIUM 4.5 mmol/L (3.4-5.1); SGPT/ALT 15 U/L (5-49); TOTAL PROTEIN 6.9 gm/dL (6.0-8.0)
== END 2024-05-11 08:36 | disposition home or self-care (01) ==
LOC: ED 04:57
PROVIDERS: Internal Medicine
DX: R04.0 Epistaxis (principal); I16.0 Hypertensive urgency; I48.91 Unspecified atrial fibrillation; I11.0 Hypertensive heart disease with heart failure; F41.9 Anxiety disorder, unspecified; F32.A Depression, unspecified; K21.9 Gastro-esophageal reflux disease without esophagitis; E78.00 Pure hypercholesterolemia, unspecified; J44.9 Chronic obstructive pulmonary disease, unspecified; Z88.8 Allergy status to other drugs, medicaments and biological substances; Z90.49 Acquired absence of other specified parts of digestive tract; Z90.89 Acquired absence of other organs; Z96.651 Presence of right artificial knee joint; Z98.890 Other specified postprocedural states

== ENCOUNTER → 2025-02-03 | Outpatient (CLI) | payer MEDICARE ==
[2025-02-03 11:35] LABS: BASO # 0.1 10*3/uL (0.0-0.1); BASO % 1.5 % (0.0-1.0); EOS # 0.1 10*3/uL (0.0-0.4); EOS % 1.2 % (1.0-4.0); HEMATOCRIT 43.7 % (37.0-47.0); MEAN CELL VOLUME 94.8 fl (81.0-99.0); MEAN CORPUSCULAR HGB 30.2 pg (27.0-31.0); MEAN CORPUSCULAR HGB CONC 31.8 g/dl (33.0-37.0); MEAN PLATELET VOLUME 8.4 fl (9.6-12.3); MONO # 0.6 10*3/uL (0.1-1.0); MONO % 7.8 % (3.0-9.0); NEUT # 5.5 10*3/uL (2.3-7.9); NEUT % 74.6 % (47.0-73.0); PLATELET COUNT AUTOMATED 368 10*3/uL (130-400); RED BLOOD COUNT 4.61 10*6/uL (4.10-5.10); RED CELL DISTRI WIDTH 15.6 % (0-14.5); WHITE BLOOD COUNT 7.4 10*3/uL (4.8-10.8)
[2025-02-03 12:25] LABS: VITAMIN D, 25-HYDROXY 30.1 ng/mL (30-100)
[2025-02-03 12:27] LABS: FREE T4 1.37 ng/dl (0.89-1.76); POTASSIUM 4.4 mmol/L (3.4-5.1); TOTAL PROTEIN 6.9 gm/dL (6.0-8.0)
== END | disposition home or self-care (01) ==
LOC: LAB 09:51 → RAD 10:00 → MAMMO 11:00
PROVIDERS: ATTEND Internal Medicine
DX: Z12.31 Encounter for screening mammogram for malignant neoplasm of breast (principal); M85.9 Disorder of bone density and structure, unspecified

== ENCOUNTER 2025-06-13 13:44 | Emergency (ER) | payer MEDICARE | END 2025-06-13 15:43 | disposition home or self-care (01) | LOC: ED 13:44 | DX: H11.31 Conjunctival hemorrhage, right eye (principal); Z88.8 Allergy status to other drugs, medicaments and biological substances; Z88.1 Allergy status to other antibiotic agents; Z79.899 Other long term (current) drug therapy; Z90.49 Acquired absence of other specified parts of digestive tract; Z90.89 Acquired absence of other organs ==

== ENCOUNTER → 2025-07-04 | Outpatient (CLI) | payer MEDICARE | END | disposition home or self-care (01) | LOC: LAB 11:06 | PROVIDERS: ATTEND Internal Medicine | DX: E55.9 Vitamin D deficiency, unspecified (principal); D51.9 Vitamin B12 deficiency anemia, unspecified; Z13.0 Encounter for screening for diseases of the blood and blood-forming organs and certain disorders involving the immune mechanism; Z13.1 Encounter for screening for diabetes mellitus; Z13.21 Encounter for screening for nutritional disorder; Z13.220 Encounter for screening for lipoid disorders; Z13.228 Encounter for screening for other metabolic disorders; Z13.6 Encounter for screening for cardiovascular disorders; Z13.89 Encounter for screening for other disorder; Z79.01 Long term (current) use of anticoagulants ==

== ENCOUNTER → 2025-07-11 | Outpatient (CLI) | payer MEDICARE | END | disposition home or self-care (01) | LOC: LAB 12:24 | PROVIDERS: ATTEND Internal Medicine | DX: D51.9 Vitamin B12 deficiency anemia, unspecified (principal); E55.9 Vitamin D deficiency, unspecified; Z13.0 Encounter for screening for diseases of the blood and blood-forming organs and certain disorders involving the immune mechanism; Z13.1 Encounter for screening for diabetes mellitus; Z13.21 Encounter for screening for nutritional disorder; Z13.220 Encounter for screening for lipoid disorders; Z13.228 Encounter for screening for other metabolic disorders; Z13.6 Encounter for screening for cardiovascular disorders; Z13.89 Encounter for screening for other disorder; Z79.01 Long term (current) use of anticoagulants ==

== ENCOUNTER → 2025-07-16 | Outpatient (CLI) | payer MEDICARE | END | disposition home or self-care (01) | LOC: LAB 02:14 | PROVIDERS: ATTEND Internal Medicine | DX: E55.9 Vitamin D deficiency, unspecified (principal); D51.9 Vitamin B12 deficiency anemia, unspecified; Z13.0 Encounter for screening for diseases of the blood and blood-forming organs and certain disorders involving the immune mechanism; Z13.1 Encounter for screening for diabetes mellitus; Z13.21 Encounter for screening for nutritional disorder; Z13.220 Encounter for screening for lipoid disorders; Z13.228 Encounter for screening for other metabolic disorders; Z13.6 Encounter for screening for cardiovascular disorders; Z13.89 Encounter for screening for other disorder; Z79.01 Long term (current) use of anticoagulants ==

== ENCOUNTER → 2025-07-18 | Outpatient (CLI) | payer MEDICARE | END | disposition home or self-care (01) | LOC: LAB 03:40 | PROVIDERS: ATTEND Internal Medicine | DX: E55.9 Vitamin D deficiency, unspecified (principal); D51.9 Vitamin B12 deficiency anemia, unspecified; Z13.0 Encounter for screening for diseases of the blood and blood-forming organs and certain disorders involving the immune mechanism; Z13.1 Encounter for screening for diabetes mellitus; Z13.21 Encounter for screening for nutritional disorder; Z13.220 Encounter for screening for lipoid disorders; Z13.228 Encounter for screening for other metabolic disorders; Z13.6 Encounter for screening for cardiovascular disorders; Z13.89 Encounter for screening for other disorder; Z79.01 Long term (current) use of anticoagulants ==

== ENCOUNTER → 2025-07-25 | Outpatient (CLI) | payer MEDICARE | END | disposition home or self-care (01) | LOC: LAB 00:13 | PROVIDERS: ATTEND Internal Medicine | DX: E55.9 Vitamin D deficiency, unspecified (principal); D51.9 Vitamin B12 deficiency anemia, unspecified; Z13.0 Encounter for screening for diseases of the blood and blood-forming organs and certain disorders involving the immune mechanism; Z13.1 Encounter for screening for diabetes mellitus; Z13.21 Encounter for screening for nutritional disorder; Z13.220 Encounter for screening for lipoid disorders; Z13.228 Encounter for screening for other metabolic disorders; Z13.6 Encounter for screening for cardiovascular disorders; Z13.89 Encounter for screening for other disorder; Z79.01 Long term (current) use of anticoagulants ==

== ENCOUNTER → 2025-07-28 | Outpatient (CLI) | payer MEDICARE | END | disposition home or self-care (01) | LOC: LAB 10:38 | PROVIDERS: ATTEND Internal Medicine | DX: Z51.81 Encounter for therapeutic drug level monitoring (principal); Z79.01 Long term (current) use of anticoagulants ==

== ENCOUNTER → 2025-08-08 | Outpatient (CLI) | payer MEDICARE | END | disposition home or self-care (01) | LOC: LAB 01:30 | PROVIDERS: ATTEND Internal Medicine | DX: E55.9 Vitamin D deficiency, unspecified (principal); D51.9 Vitamin B12 deficiency anemia, unspecified; Z13.0 Encounter for screening for diseases of the blood and blood-forming organs and certain disorders involving the immune mechanism; Z13.1 Encounter for screening for diabetes mellitus; Z13.21 Encounter for screening for nutritional disorder; Z13.220 Encounter for screening for lipoid disorders; Z13.228 Encounter for screening for other metabolic disorders; Z13.6 Encounter for screening for cardiovascular disorders; Z13.89 Encounter for screening for other disorder; Z79.01 Long term (current) use of anticoagulants ==

== ENCOUNTER → 2025-08-15 | Outpatient (CLI) | payer MEDICARE | END | disposition home or self-care (01) | LOC: LAB 01:50 | PROVIDERS: ATTEND Internal Medicine | DX: E55.9 Vitamin D deficiency, unspecified (principal); D51.9 Vitamin B12 deficiency anemia, unspecified; Z13.0 Encounter for screening for diseases of the blood and blood-forming organs and certain disorders involving the immune mechanism; Z13.1 Encounter for screening for diabetes mellitus; Z13.21 Encounter for screening for nutritional disorder; Z13.220 Encounter for screening for lipoid disorders; Z13.228 Encounter for screening for other metabolic disorders; Z13.6 Encounter for screening for cardiovascular disorders; Z13.89 Encounter for screening for other disorder; Z79.01 Long term (current) use of anticoagulants; N39.0 Urinary tract infection, site not specified ==

== ENCOUNTER → 2025-08-20 | Outpatient (CLI) | payer MEDICARE | END | disposition home or self-care (01) | LOC: LAB 00:21 | PROVIDERS: ATTEND Internal Medicine | DX: Z13.0 Encounter for screening for diseases of the blood and blood-forming organs and certain disorders involving the immune mechanism (principal); Z13.1 Encounter for screening for diabetes mellitus; Z13.21 Encounter for screening for nutritional disorder; Z13.220 Encounter for screening for lipoid disorders; Z13.228 Encounter for screening for other metabolic disorders; Z13.6 Encounter for screening for cardiovascular disorders; Z13.89 Encounter for screening for other disorder; E55.9 Vitamin D deficiency, unspecified; D51.9 Vitamin B12 deficiency anemia, unspecified; Z79.01 Long term (current) use of anticoagulants ==

== ENCOUNTER 2025-08-21 13:59 | Emergency (ER) | payer MEDICARE ==
[~2025-08-21] VITALS: Ht 165.1 cm; Wt 81.6 kg
[2025-08-21 14:51] LABS: BASO # 0.1 10*3/uL (0.0-0.1); BASO % 0.9 % (0.0-1.0); EOS # 0.3 10*3/uL (0.0-0.4); EOS % 2.6 % (1.0-4.0); MEAN CELL VOLUME 90.3 fl (81.0-99.0); MEAN CORPUSCULAR HGB 27.9 pg (27.0-31.0); MEAN PLATELET VOLUME 8.5 fl (9.6-12.3); MONO # 0.7 10*3/uL (0.1-1.0); MONO % 6.7 % (3.0-9.0); NEUT # 7.3 10*3/uL (2.3-7.9); NEUT % 76.2 % (47.0-73.0); NUCLEATED RED BLOOD CELL 0.0 % (0.0-0.0); NUCLEATED RED BLOOD CELL 0.0 10*3/uL (0.0-0.0); PLATELET COUNT AUTOMATED 318 10*3/uL (130-400); RED CELL DISTRI WIDTH 15.8 % (0-14.5)
[2025-08-21 15:20] LABS: BUN 20.0 mg/dl (9-23)
== END 2025-08-21 15:52 | disposition home or self-care (01) ==
LOC: ED 13:59
PROVIDERS: Nurse Practitioner Family
DX: R79.89 Other specified abnormal findings of blood chemistry (principal); I10 Essential (primary) hypertension; F41.9 Anxiety disorder, unspecified; K21.9 Gastro-esophageal reflux disease without esophagitis; F32.A Depression, unspecified; E78.00 Pure hypercholesterolemia, unspecified; J44.9 Chronic obstructive pulmonary disease, unspecified; I48.91 Unspecified atrial fibrillation; Z90.49 Acquired absence of other specified parts of digestive tract; Z90.89 Acquired absence of other organs; Z88.8 Allergy status to other drugs, medicaments and biological substances

== ENCOUNTER → 2025-08-22 | Outpatient (CLI) | payer MEDICARE | END | disposition home or self-care (01) | LOC: LAB 11:28 | PROVIDERS: ATTEND Internal Medicine | DX: Z51.81 Encounter for therapeutic drug level monitoring (principal); Z79.01 Long term (current) use of anticoagulants ==

== ENCOUNTER → 2025-08-25 | Outpatient (CLI) | payer MEDICARE | END | disposition home or self-care (01) | LOC: LAB 08-23 12:09 | PROVIDERS: ATTEND Internal Medicine | DX: Z51.81 Encounter for therapeutic drug level monitoring (principal); Z79.01 Long term (current) use of anticoagulants ==

== ENCOUNTER → 2025-09-01 | Outpatient (CLI) | payer MEDICARE | END | disposition home or self-care (01) | LOC: LAB 01:29 | PROVIDERS: ATTEND Internal Medicine | DX: Z51.81 Encounter for therapeutic drug level monitoring (principal); Z79.01 Long term (current) use of anticoagulants ==